=== PATIENT | female | born 1980 | race Caucasian/White ===

== ENCOUNTER 2020-03-20 10:41 | Inpatient (IN) ==
[2020-03-20] MEDS ORDERED: ONDANSETRON INJ 2 MG/ML 2 ML VIAL IV STA (10:54)
[2020-03-20] MEDS ORDERED: SODIUM CHLORIDE 0.9% 1000ML 1,000 ML IV ONE (10:57)
--- NOTE | 2020-03-20 10:57 | Emergency Department Note ---
Impression & Plan Nausea & vomiting, Acute pelvic inflammatory disease (PID), Urinary tract infection ED Provider Note NAME: CHANNING LICONA AGE: 40 SEX: F : 1980 ARRIVES VIA: Walk-In INFORMANT: Patient, ED PROVIDER(S): Sven Grewal DO CHIEF COMPLAINT: Vaginal discharge HPI: The patient is a 40-year-old female who presented to the emergency department for an evaluation of nausea vomiting. The patient is currently at [facility] for inpatient rehab for detoxification from alcohol. She also has a history of drug abuse. She abuses MDMA. Her last alcoholic beverage was 3 days ago. She was cleared medically in [place] where she lives and then presented to the emergency department today because of nausea vomiting symptoms. She also is concerned she may have been exposed to an STD. She is noticed a foul-smelling discharge. She also notices lower abdominal crampiness. She denies having any fever. The patient states that her last menstrual period was normal timing. The patient denies having any headache or chest pain. She denies having any difficulty breathing. She is been taking Phenergan and Zofran at [facility] with only minimal relief in her symptoms. The patient still has her gallbladder. The patient states that she thinks her significant other may have been cheating on her. ROS: See above HPI for pertinent positives & negatives. A total of 10 systems reviewed and were otherwise negative. PAST MEDICAL HISTORY: See Below PAST SURGICAL HISTORY: See Below FAMILY HISTORY: See Below SOCIAL HISTORY: See Below HOME MEDICATIONS: See Below ALLERGIES: See Below VITALS: See Below PHYSICAL EXAMINATION: GENERAL: Patient is awake alert in no acute distress patient is resting c omfortably and showing no signs of anxiety EYES: The conjunctivae are clear. The pupils are round and reactive. EARS, NOSE, MOUTH AND THROAT: The nose is without any evidence of any deformity. Mucous membranes are moist. Tongue is midline. NECK: The neck is nontender and supple. RESPIRATORY: Normal respiratory effort is noted there is no evidence of wheezing rhonchi or rales CARDIOVASCULAR: Regular rate and rhythm noted there no murmurs rubs or gallops normal S1 normal S2. GASTROINTESTINAL: The abdomen is soft and nondistended. There is lower abdominal tenderness to palpation but no guarding rigidity. PELVIC: External genitalia are normal in appearance. There was no rashes or lesions. Speculum exam revealed significant discharge with injection of the cervix. There was also mild cervical motion tenderness and left adnexal tenderness. MUSCULOSKELETAL/EXTREMITIES: There is no evidence of gross deformity full range of motion is noted in the hips and shoulders. SKIN: There is no obvious evidence of any rash. There are no petechiae, pallor or cyanosis noted. NEUROLOGIC: Patient is awake alert and oriented x3 strength is symmetric patellar reflexes are 2+ bilaterally MEDICAL DECISION MAKING: The patient is a 40-year-old female who presented to the emergency department from [facility] for an evaluation of nausea and vomiting. The patient describes lower abdominal tenderness and vaginal discharge. Her history and physical exam do appear to be consistent with PID. I discussed the patient's laboratory and radiographic studies with her. She was treated with IV fluids and multiple doses of IV antiemetics. She was also given IV and p.o. antibiotics to cover for pelvic inflammatory disease as well as urinary tract infection. I discussed her case with the nursing staff at [facility]. At this time they would prefer the patient be observed in our facility to ensure she was improving as they were not comfortable managing her symptoms back at their facility. For this reason I discussed her case with Dr. Proctor who is on-call for the [facility]. They will evaluate the patient in the emergency department for further management and disposition. Triage Nursing notes reviewed. Prior medical records reviewed Vital Signs: reviewed and remarkable for initial hypotension. Differential diagnosis: Etiologies such as appendicitis, diverticulitis, obstruction, inflammatory bowel disease, renal colic, PUD, biliary pathology, pancreatitis, mesenteric ischemia, aortic pathology, infections, genitourinary, UTI, perforated viscus, as well as others were entertained. ER treatment provided: See below Diagnostics interpreted by me: ECG: EKG was obtained in the emergency department. My interpretation is sinus rhythm at 71 bpm. Frequent PVCs were noted. Ectopic atrial beats were also noted. No previous tracing was available for comparison. Cardiac Monitoring: An order was placed for continuous cardiac monitoring. The monitor shows a rate of 85 bpm with sinus rhythm. Laboratory studies: As stated above and show below. Imaging studies: See below Consultation(s): 1410: I discussed this case with Dr. Proctor who is on-call for the [facility]. Past Med/Surg History Medical History Alcohol abuse Asthma Social History Smoking Status: Current every day smoker Hx Alcohol Use: Yes Alcohol type: beer Alcohol Intake Frequency: 2-3 x/Week Hx Substance Use: Yes (MDMA) Feels Safe at Home: Yes Allergies Allergies Allergy/AdvReac Type Severity Reaction Status Date / Time No Known Allergies Allergy Unverified 03/20/20 11:57 Home Meds Home Medications Medication Instructions Recorded Confirmed acetaminophen [Tylenol 8 Hour] 650 mg PO QID PRN 03/20/20 03/20/20 aluminum-magnesium hydroxide 20 ml PO BID PRN 03/20/20 03/20/20 [Maalox] aripiprazole [Abilify] 10 mg PO QAM 03/20/20 03/20/20 aripiprazole [Abilify] 20 mg PO QAM 03/20/20 03/20/20 buspirone [BuSpar] 5 mg PO BID 03/20/20 03/20/20 cyanocobalamin (vitamin B-12) 1,000 mcg PO QAM 03/20/20 03/20/20 [Vitamin B-12] escitalopram oxalate [Lexapro] 10 mg PO QAM 03/20/20 03/20/20 folic acid 1 mg PO QAM 03/20/20 03/20/20 ibuprofen 600 mg PO QID PRN 03/20/20 03/20/20 multivitamin [M.V.I.] 1 ea IV QAM 03/20/20 03/20/20 ondansetron HCl [Zofran] 8 mg PO TID PRN 03/20/20 03/20/20 promethazine [Phenergan] 25 mg PO ONCE 03/20/20 03/20/20 thiamine HCl (vitamin B1) 100 mg PO QAM 03/20/20 03/20/20 Results & Data (ED) Vital Signs Vital Signs - 24 hr 03/20/20 10:45 03/20/20 11:18 03/20/20 11:24 Temperature 36.8 C Temperature Source Oral Pulse Rate 85 86 71 Pulse Rate from SpO2 Sensor 71 Respiratory Rate 16 21 22 Blood Pressure 85/59 L 122/71 Blood Pressure Mean 67 91 Pulse Oximetry 97 99 Oxygen Delivery Method Room Air Sepsis Recent Fever Within 48 Hours No Sepsis New/Unexplained Change in Mental Status N/A Sepsis Action Taken by Nursing No Action Required 03/20/20 11:30 03/20/20 12:00 03/20/20 12:01 Temperature Temperature Source Pulse Rate 67 73 92 H Pulse Rate from SpO2 Sensor 67 66 74 Respiratory Rate 22 23 16 Blood Pressure 110/73 Blood Pressure Mean 86 Pulse Oximetry 99 91 Oxygen Delivery Method Sepsis Recent Fever Within 48 Hours Sepsis New/Unexplained Change in Mental Status Sepsis Action Taken by Nursing 03/20/20 12:30 03/20/20 12:31 03/20/20 13:00 Temperature Temperature Source Pulse Rate 78 76 84 Pulse Rate from SpO2 Sensor Respiratory Rate 22 29 H 17 Blood Pressure 126/72 Blood Pressure Mean 96 Pulse Oximetry Oxygen Delivery Method Sepsis Recent Fever Within 48 Hours Sepsis New/Unexplained Change in Mental Status Sepsis Action Taken by Nursing 03/20/20 13:30 Temperature Temperature Source Pulse Rate 73 Pulse Rate from SpO2 Sensor Respiratory Rate 20 Blood Pressure Blood Pressure Mean Pulse Oximetry Oxygen Delivery Method Sepsis Recent Fever Within 48 Hours Sepsis New/Unexplained Change in Mental Status Sepsis Action Taken by Usp Medications Current Medication List: was personally reviewed by me Laboratory Data Attestation: I reviewed the patient's lab results. Result diagrams: 03/20/20 11:17 03/20/20 11:17 Lab Results 03/20/20 03/20/20 03/20/20 Range/Units 11:17 11:17 11:17 WBC 18.08 H (4.8-10.8) K/uL RBC 6.08 H (4.2-5.4) M/uL Hgb 17.4 H (12.0-16.0) g/dL Hct 51.7 H (37-47) % MCV 85.0 (80-100) fL MCH 28.6 (25-34) pg MCHC 33.7 (32-36) g/dL RDW Std Deviation 45.0 (36.4-46.3) fL RDW Coeff of Dimitrios 14.6 H (11.5-14.5) % Plt Count 443 H (130-400) K/uL MPV 11.6 H (7.4-10.4) fL Immature Gran % (Auto) 0.3 % Neut % (Auto) 79.0 % Lymph % (Auto) 15.3 % [place] % (Auto) 5.3 % Eos % (Auto) 0.0 % Baso % (Auto) 0.1 % Neut # (Auto) 14.29 H (1.4-6.5) K/uL Lymph # (Auto) 2.76 (1.2-3.4) K/uL [place] # (Auto) 0.96 H (0.11-0.59) K/uL Eos # (Auto) 0.00 (0-0.5) K/uL Baso # (Auto) 0.01 (0-0.2) K/uL Immature Gran # (Auto) 0.06 H (0.00-0.02) K/uL Sodium 135 L (136-145) mmol/L Potassium 3.5 (3.5-5.1) mmol/L Chloride 97 L (98-107) mmol/L Carbon Dioxide 29 (21-32) mmol/L Anion Gap 9.0 (3-11) BUN 13 (7-18) mg/dl Creatinine 0.98 (0.6-1.2) mg/dl Est Cr Clr Drug Dosing 76.2 ml/min Est GFR ( Amer) 83.0 Est GFR (Non-Af Amer) 71.6 BUN/Creatinine Ratio 13.0 (10-20) Glucose 94 (70-99) mg/dl Calcium 10.2 H (8.5-10.1) mg/dl Magnesium (1.8-2.4) mg/dl Total Bilirubin 0.7 (0.2-1) mg/dl AST 14 L (15-37) U/L ALT 21 (12-78) U/L Alkaline Phosphatase 72 (45-117) U/L Troponin I (0-0.045) ng/ml Total Protein 10.1 H (6.4-8.2) gm/dl Albumin 4.8 (3.4-5.0) gm/dl Globulin 5.3 H (2.5-4.0) gm/dl Albumin/Globulin Ratio 0.9 (0.9-2) Lipase 91 (73-393) U/L HCG, Qual Negative (Negative) Urine Color Urine Appearance (Clear) Urine pH (4.5-7.5) Ur Specific [place] (1.000-1.030) Urine Protein (Negative) Urine Glucose (UA) (Negative) Urine Ketones (Negative) Urine Blood (Negative) Urine Nitrite (Negative) Urine Bilirubin (Negative) Urine Urobilinogen (Negative) Ur Leukocyte Esterase (Negative) Urine WBC (Auto) (0-5) /hpf Urine RBC (Auto) (0-4) /hpf U Hyaline Cast (Auto) (0-5) /lpf U Epithel Cells (Auto) (0-5) /lpf Urine Bacteria (Auto) (Negative) Urine Opiates Screen (Neg) Ur Methadone, Qual (Neg) Urine Barbiturates (Neg) Ur Phencyclidine (PCP) (Neg) U Amphetamin/Meth Scrn (Neg) MDMA (Ecstasy) Screen (Neg) U Benzodiazepines Scrn (Neg) Ur Cocaine Metabolite (Neg) U Marijuana (THC) Screen (Neg) 03/20/20 03/20/20 03/20/20 Range/Units 11:17 11:17 11:17 WBC (4.8-10.8) K/uL RBC (4.2-5.4) M/uL Hgb (12.0-16.0) g/dL Hct (37-47) % MCV (80-100) fL MCH (25-34) pg MCHC (32-36) g/dL RDW Std Deviation (36.4-46.3) fL RDW Coeff of Dimitrios (11.5-14.5) % Plt Count (130-400) K/uL MPV (7.4-10.4) fL Immature Gran % (Auto) % Neut % (Auto) % Lymph % (Auto) % [place] % (Auto) % Eos % (Auto) % Baso % (Auto) % Neut # (Auto) (1.4-6.5) K/uL Lymph # (Auto) (1.2-3.4) K/uL [place] # (Auto) (0.11-0.59) K/uL Eos # (Auto) (0-0.5) K/uL Baso # (Auto) (0-0.2) K/uL Immature Gran # (Auto) (0.00-0.02) K/uL Sodium (136-145) mmol/L Potassium (3.5-5.1) mmol/L Chloride (98-107) mmol/L Carbon Dioxide (21-32) mmol/L Anion Gap (3-11) BUN (7-18) mg/dl Creatinine (0.6-1.2) mg/dl Est Cr Clr Drug Dosing ml/min Est GFR ( Amer) Est GFR (Non-Af Amer) BUN/Creatinine Ratio (10-20) Glucose (70-99) mg/dl Calcium (8.5-10.1) mg/dl Magnesium 2.2 (1.8-2.4) mg/dl Total Bilirubin (0.2-1) mg/dl AST (15-37) U/L ALT (12-78) U/L Alkaline Phosphatase (45-117) U/L Troponin I < 0.015 (0-0.045) ng/ml Total Protein (6.4-8.2) gm/dl Albumin (3.4-5.0) gm/dl Globulin (2.5-4.0) gm/dl Albumin/Globulin Ratio (0.9-2) Lipase (73-393) U/L HCG, Qual (Negative) Urine Color Dark Yellow Urine Appearance Turbid A (Clear) Urine pH 5.5 (4.5-7.5) Ur Specific [place] 1.026 (1.000-1.030) Urine Protein 2+ H (Negative) Urine Glucose (UA) Negative (Negative) Urine Ketones 3+ H (Negative) Urine Blood Trace H (Negative) Urine Nitrite Negative (Negative) Urine Bilirubin 2+ H (Negative) Urine Urobilinogen Negative (Negative) Ur Leukocyte Esterase 2+ H (Negative) Urine WBC (Auto) >30 H (0-5) /hpf Urine RBC (Auto) 0-4 (0-4) /hpf U Hyaline Cast (Auto) 10-30 H (0-5) /lpf U Epithel Cells (Auto) >30 H (0-5) /lpf Urine Bacteria (Auto) 2+ H (Negative) Urine Opiates Screen Neg (Neg) Ur Methadone, Qual Neg (Neg) Urine Barbiturates Neg (Neg) Ur Phencyclidine (PCP) Neg (Neg) U Amphetamin/Meth Scrn Neg (Neg) MDMA (Ecstasy) Screen Neg (Neg) U Benzodiazepines Scrn Neg (Neg) Ur Cocaine Metabolite Neg (Neg) U Marijuana (THC) Screen Neg (Neg) Administered Medications Discontinued Medications Azithromycin (Azithromycin 250 Mg Tab) 1,000 mg PO NOW ONE Stop: 03/20/20 12:14 Last Admin: 03/20/20 13:44 Dose: 1,000 mg Documented by: [id number] Sodium Chloride (Nss 1000ml) 1,000 mls @ 999 mls/hr IV .Q1H1M RITA Stop: 03/20/20 12:00 Last Infusion: 03/20/20 12:32 Dose: 0 mls/hr Documented by: [id number] Admin: 03/20/20 11:29 Dose: 999 mls/hr Documented by: [id number] Sodium Chloride (Nss 1000ml) 1,000 mls @ 999 mls/hr IV .Q1H1M ONE Stop: 03/20/20 11:57 Last Infusion: 03/20/20 12:32 Dose: 0 mls/hr Documented by: [id number] Admin: 03/20/20 11:29 Dose: 999 mls/hr Documented by: [id number] Thiamine HCl 200 mg/ Sodium (Chloride) 52 mls @ 208 mls/hr IV NOW STA Stop: 03/20/20 12:04 Last Infusion: 03/20/20 13:45 Dose: 0 mls/hr Documented by: [id number] Admin: 03/20/20 12:56 Dose: 208 mls/hr Documented by: [id number] Ceftriaxone Sodium (Rocephin) 1,000 mg in 50 mls @ 100 mls/hr IV NOW STA Stop: 03/20/20 12:42 Last Infusion: 03/20/20 13:45 Dose: 0 mls/hr Documented by: [id number] Admin: 03/20/20 12:39 Dose: 100 mls/hr Documented by: [id number] Promethazine HCl (Phenergan) 12.5 mg in 50.5 mls @ 202 mls/hr IV NOW STA Stop: 03/20/20 13:07 Last Infusion: 03/20/20 13:45 Dose: 0 mls/hr Documented by: [id number] Admin: 03/20/20 13:03 Dose: 202 mls/hr Documented by: [id number] Ioversol (Ioversol 100ml) 94 ml IV ONCE ONE Stop: 03/20/20 13:19 Last Admin: 03/20/20 13:19 Dose: 94 ml Documented by: [id number] Ondansetron HCl (Ondansetron Inj 2 Mg/Ml 2 Ml Vial) 4 mg IV NOW STA Stop: 03/20/20 10:55 Last Admin: 03/20/20 11:29 Dose: 4 mg Documented by: [id number] Imaging Data Radiologist's Impression: Patient: CHANNING LICONA Admit Date: 03/20/20 MR#: [id number] Address1: [address] [place] [address] Acct ID:[id number] Address2: Date: 1980 [facility] Zip: [place] [address] Age: 40 Location: ED Sex: F Room/Bed: Att Phy: Diagnosis: VOMITING, CAN'D HOLD ANYTHING DOWN,CRAMPING Jailene Phy: PCP,NO Service Date: 03/20/20 [facility] Phy: Interpreting Phy: Parveen Manning MD Admit Phy: Ordering Phy: Sven Grewal DO cc: ~ ABDOMEN AND PELVIS CT WITH IV CONTRAST CT DOSE: 447.35 mGycm HISTORY: Abdominal cramping and vomiting TECHNIQUE: Multiaxial CT images of the abdomen and pelvis were performed following the use of intravenous contrast. A dose lowering technique was utilized adhering to the principles of ALARA. COMPARISON STUDY: None. FINDINGS: The lung bases are clear. No pneumoperitoneum. No pneumatosis. There is a 5 mm hypodense lesion within the left hepatic lobe. This is technically too small to characterize but likely represents a cyst. The liver, spleen, adrenal glands, pancreas, and kidneys are unremarkable. No hydronephrosis. No retroperitoneal lymphadenopathy. The main portal vein is patent. Normal caliber abdominal aorta. The bladder, uterus, and ovaries are within normal limits. There is a 1.8 cm dominant right ovarian cyst. This is likely physiologic. Trace pelvic free fluid is also likely physiologic. No bowel wall thickening or obstruction. Normal appendix. IMPRESSION: 1. No bowel wall thickening or obstruction. 2. Normal appendix. 3. Trace pelvic free fluid. This is likely physiologic. ACT 112: Negative or not required by law. Electronically signed by: Parveen Manning M.D. 03/20/2020 1:35 PM Dictated: 03/20/201326 Transcribed: 03/20/20 1327 Patient: CHANNING LICONA Admit Date: 03/20/20 MR#: [id number] Address1: [address] [place] [address] Acct ID:[id number] Address2: Date: 1980 [facility] Zip: [place] [address] Age: 40 Location: ED Sex: F Room/Bed: Att Phy: Diagnosis: VOMITING, CAN'D HOLD ANYTHING DOWN,CRAMPING Jailene Phy: PCP,NO Service Date: 03/20/20 Fam Phy: Interpreting Phy: Keith Valera Admit Phy: Ordering Phy: Sven Grewal DO cc: ~ XR chest 1V portable, XR KUB/Abdomen 1 view HISTORY: 40 years-old Female vomiting acute vomiting COMPARISON: None TECHNIQUE: Chest radiograph with KUB radiograph FINDINGS: CHEST: Cardiomediastinal and hilar silhouettes are within normal limits. There is no pneumothorax, pleural effusion, airspace consolidation or overt pulmonary edema. Bones of the chest appear grossly intact. Nipple shadows project over the lung bases. KUB: Bowel gas pattern is nonobstructive. No urolith. No pneumatosis or pneumoperitoneum. No acute fracture or opaque foreign body. IMPRESSION: 1. No acute processes of the chest. 2. Nonobstructive bowel gas pattern. ACT 112: Negative or not required by law. The above report was generated using voice recognition software. It may contain grammatical, syntax or spelling errors. Electronically signed by: Paulino Valera M.D. 03/20/2020 12:21 PM Dictated: 03/20/20 121 Transcribed: 03/20/20 1219 Patient: CHANNING LICONA Admit Date: 03/20/20 MR#: [id number] Address1: [address] Acct ID:[id number] Address2: Date: 1980 [facility] Zip: [place] [address] Age: 40 Location: ED Sex: F Room/Bed: Att Phy: Diagnosis: VOMITING, CAN'D HOLD ANYTHING DOWN,CRAMPING Jailene Phy: PCP,NO Service Date: 03/20/20 Fam Phy: Interpreting Phy: Keith Valera Admit Phy: Ordering Phy: Sven Grewal DO cc: ~ XR chest 1V portable, XR KUB/Abdomen 1 view HISTORY: 40 years-old Female vomiting acute vomiting COMPARISON: None TECHNIQUE: Chest radiograph with KUB radiograph FINDINGS: CHEST: Cardiomediastinal and hilar silhouettes are within normal limits. There is no pneumothorax, pleural effusion, airspace consolidation or overt pulmonary edema. Bones of the chest appear grossly intact. Nipple shadows project over the lung bases. KUB: Bowel gas pattern is nonobstructive. No urolith. No pneumatosis or pn eumoperitoneum. No acute fracture or opaque foreign body. IMPRESSION: 1. No acute processes of the chest. 2. Nonobstructive bowel gas pattern. ACT 112: Negative or not required by law. The above report was generated using voice recognition software. It may contain grammatical, syntax or spelling errors. Electronically signed by: Paulino Valera M.D. 03/20/2020 12:21 PM Dictated: 03/20/20 1219 Transcribed: 03/20/20 121 Blood Pressure Blood Pressure Findings: Normal blood pressure Discharge Plan Visit Data Chief Complaint: Vomiting Stated Complaint: VOMITING, CAN'D HOLD ANYTHING DOWN,CRAMPING ED Provider: Sevn Grewal Discharge Problem: Nausea & vomiting, Acute pelvic inflammatory disease (PID), Urinary tract infection Patient Disposition: Being Evaluated by Hospitalist Condition: Good Forms Stand Alone Forms: [facility] Prescriptions Prescriptions: No Action buspirone [BuSpar] 5 mg Tablet 5 mg PO BID RF: 0 ondansetron HCl [Zofran] 8 mg Tablet 8 mg PO TID PRN (Reason: Nausea) RF: 0 cyanocobalamin (vitamin B-12) [Vitamin B-12] 1,000 mcg Tablet 1,000 mcg PO QAM RF: 0 thiamine HCl (vitamin B1) 100 mg Tablet 100 mg PO QAM RF: 0 acetaminophen [Tylenol 8 Hour] 650 mg Tablet Extended Release 650 mg PO QID PRN (Reason: Pain) RF: 0 Maalox 225-200 mg/5 mL Suspension 20 ml PO BID PRN (Reason: gastric upset) RF: 0 promethazine [Phenergan] 25 mg Tablet 25 mg PO ONCE RF: 0 folic acid 1 mg Tablet 1 mg PO QAM RF: 0 ibuprofen 600 mg Tablet 600 mg PO QID PRN (Reason: Pain) RF: 0 M.V.I. Injectable 1 ea IV QAM RF: 0 escitalopram oxalate [Lexapro] 10 mg Tablet 10 mg PO QAM RF: 0 aripiprazole [Abilify] 10 mg Tablet 10 mg PO QAM RF: 0 aripiprazole [Abilify] 20 mg Tablet 20 mg PO QAM RF: 0 Referrals Referrals: PCP,NO [Primary Care Provider] -
[2020-03-20] MEDS ORDERED: SODIUM CHLORIDE 0.9% 1000ML 1,000 ML IV SCH (11:00)
[2020-03-20 11:37] LABS: Basophils # (auto) 0.01 K/uL (0-0.2); Basophils % (auto) 0.1 %; Hematocrit (blood only) 51.7 % (37-47); Hemoglobin 17.4 g/dL (12.0-16.0); Immature Granulocytes # (auto) 0.06 K/uL (0.00-0.02); Immature Granulocytes % (auto) 0.3 %; Lymphocytes # (auto) 2.76 K/uL (1.2-3.4); Lymphocytes % (auto) 15.3 %; Mean Corpuscular Hemoglobin 28.6 pg (25-34); Mean Corpuscular Hgb Conc 33.7 g/dL (32-36); Mean Platelet Volume 11.6 fL (7.4-10.4); Monocytes # (auto) 0.96 K/uL (0.11-0.59); Monocytes % (auto) 5.3 %; Neutrophils # (auto) 14.29 K/uL (1.4-6.5); Platelet Count 443 K/uL (130-400); RDW Coefficient of Variation 14.6 % (11.5-14.5); Red Blood Count 6.08 M/uL (4.2-5.4); White Blood Count 18.08 K/uL (4.8-10.8)
[2020-03-20 11:40] LABS: Appearance Urine Turbid (Clear); Bacteria Urine Automated 2+ (Negative); Blood Urine Trace (Negative); Color Urine Dark Yellow; Epithelial Cell Urine Auto >30 /lpf (0-5); Glucose Urine UA Negative (Negative); Ketones Urine 3+ (Negative); Leukocyte Esterase Urine 2+ (Negative); Nitrite Urine Negative (Negative); Protein Urine 2+ (Negative); RBC Urine Automated 0-4 /hpf (0-4); Specific Gravity Urine 1.026 (1.000-1.030); Urobilinogen Urine Negative (Negative); WBC Urine Automated >30 /hpf (0-5); pH Urine 5.5 (4.5-7.5)
[2020-03-20 11:41] LABS: Bilirubin Urine 2+ (Negative)
[2020-03-20 11:43] LABS: Ictotest Urine Positive (Negative)
[2020-03-20] MEDS ORDERED: THIAMINE HCL 200 MG in SODIUM CHLORIDE 0.9% 50 ML IV STA (11:50)
[2020-03-20 11:55] LABS: Albumin Level 4.8 gm/dl (3.4-5.0); Calcium 10.2 mg/dl (8.5-10.1); Creatinine Clr Calc Pharmacy 76.2 ml/min; Est GFR (Non-African American) 71.6; Potassium 3.5 mmol/L (3.5-5.1)
[2020-03-20 11:58] LABS: Albumin Globulin Ratio 0.9 (0.9-2); Bilirubin,Total 0.7 mg/dl (0.2-1); Globulin 5.3 gm/dl (2.5-4.0); Total Protein 10.1 gm/dl (6.4-8.2)
[2020-03-20 12:00] LABS: Pregnancy Test, Serum Negative (Negative)
[2020-03-20] MEDS ORDERED: cefTRIAXone SODIUM 1,000 MG/50 ML BAG IV STA (12:13)
[2020-03-20 12:16] LABS: Amphetamines+Metham, Urine Neg (Neg); Barbiturates, Urine Neg (Neg); Benzodiazepine, Urine Neg (Neg); Cocaine, Urine Neg (Neg); MDMA (Ecstacy), Urine Neg (Neg); Methadone, Urine Neg (Neg); Opiate, Urine Neg (Neg); Phencyclidine, Urine Neg (Neg)
[2020-03-20 12:22] LABS: Magnesium 2.2 mg/dl (1.8-2.4); Troponin I < 0.015 ng/ml (0-0.045)
--- NOTE | 2020-03-20 12:23 | XRay Report ---
XR chest 1V portable, XR KUB/Abdomen 1 view HISTORY: 40 years-old Female vomiting acute vomiting COMPARISON: None TECHNIQUE: Chest radiograph with KUB radiograph FINDINGS: CHEST: Cardiomediastinal and hilar silhouettes are within normal limits. There is no pneumothorax, pleural e ffusion, airspace consolidation or overt pulmonary edema. Bones of the chest appear grossly intact. N ipple shadows project over the lung bases. KUB: Bowel gas pattern is nonobstructive. No urolith. No pneumatosis or pneumoperitoneum. No acute fractur e or opaque foreign body. IMPRESSION: 1. No acute processes of the chest. 2. Nonobstructive bowel gas pattern. ACT 112: Negative or not required by law. The above report was generated using voice recognition software. It may contain grammatical, syntax o r spelling errors. Electronically signed by: Paulino Valera M.D. 03/20/2020 12:21 PM
[2020-03-20] MEDS: AZITHROMYCIN 250 MG TAB PO ONE ×2 (12:39→13:44)
[2020-03-20] MEDS ORDERED: PROMETHAZINE 12.5 MG/50.5 ML BAG IV STA (12:53)
[2020-03-20] MEDS ORDERED: IOVERSOL 100ml IV ONE (13:18)
--- NOTE | 2020-03-20 13:36 | CT Scan Report ---
ABDOMEN AND PELVIS CT WITH IV CONTRAST CT DOSE: 447.35 mGycm HISTORY: Abdominal cramping and vomiting TECHNIQUE: Multiaxial CT images of the abdomen and pelvis were performed following the use of intrave nous contrast. A dose lowering technique was utilized adhering to the principles of ALARA. COMPARISON STUDY: None. FINDINGS: The lung bases are clear. No pneumoperitoneum. No pneumatosis. There is a 5 mm hypodense le james within the left hepatic lobe. This is technically too small to characterize but likely represent s a cyst. The liver, spleen, adrenal glands, pancreas, and kidneys are unremarkable. No hydronephrosi s. No retroperitoneal lymphadenopathy. The main portal vein is patent. Normal caliber abdominal aorta . The bladder, uterus, and ovaries are within normal limits. There is a 1.8 cm dominant right ovarian cyst. This is likely physiologic. Trace pelvic free fluid is also likely physiologic. No bowel wall thickening or obstruction. Normal appendix. IMPRESSION: 1. No bowel wall thickening or obstruction. 2. Normal appendix. 3. Trace pelvic free fluid. This is likely physiologic. ACT 112: Negative or not required by law. Electronically signed by: Parveen Manning M.D. 03/20/2020 1:35 PM
--- NOTE | 2020-03-20 14:24 | Electrocardiogram Report ---
Test Reason : Blood Pressure : / mmHG Vent. Rate : 071 BPM Atrial Rate : 071 BPM P-R Int : 120 ms QRS Dur : 084 ms QT Int : 416 ms P-R-T Axes : 065 061 064 degrees QTc Int : 452 ms Sinus rhythm with sinus arrhythmia with occasional Premature ventricular complexes Otherwise normal ECG No previous ECGs available Confirmed by Leobardo Lucas ([id number] on 03/20/2020 2:23:56 PM Referred By: REFERRED SELF Confirmed By:Gordo Lucas
--- NOTE | 2020-03-20 14:40 | History & Physical Report ---
Date of Service March 20, 2020 Assessment & Plan (1) Acute pelvic inflammatory disease (PID): Per ED provider, she had cervical discharge and cervical motion tenderness on exam. - Continue ceftriaxone / doxycycline - Follow cultures (2) Depression: Patient unwilling to go into any detail with me regarding mental health issues. - Continue home aripiprazole & escitalopram (3) Alcohol abuse: No signs/symptoms of withdrawal at present. Patient reports last drink was last Wednesday, so already at 5 days. Significant withdrawal symptoms appear unlikely. - Monitor - Continue vitamin supplements (4) DVT prophylaxis: SCDs - Low DVT risk per admission calculator History of Present Illness Primary Care Provider: NO PCP 40yo F w/ hx of alcohol abuse who presents with likely PID. Patient is a reluctant historian and after partial interview reports she "just wants warm blankets and to go to sleep" then turns over and ignores my other questions. In terms of interview, she says she had her last drink on Wednesday. She is from [place] and was at [facility] for inpatient rehab. She does not/cannot give me a history of how she got to [facility], only saying she was NOT visiting family or friends in the area. She reports some abdominal cramping and nausea over the last few days. She reports it is waxing and waning and has no associated alleviating or exacerbating factors. She also notes some chills during this time. She declined further ROS. Allergies Allergy/AdvReac Type Severity Reaction Status Date / Time No Known Allergies Allergy Unverified 03/20/20 11:57 Home Medications Home Medications Medication Instructions Recorded Confirmed Type acetaminophen [Tylenol 8 Hour] 650 mg PO QID PRN 03/20/20 03/20/20 History aluminum-magnesium hydroxide 20 ml PO BID PRN 03/20/20 03/20/20 History [Maalox] aripiprazole [Abilify] 10 mg PO QAM 03/20/20 03/20/20 History aripiprazole [Abilify] 20 mg PO QAM 03/20/20 03/20/20 History buspirone [BuSpar] 5 mg PO BID 03/20/20 03/20/20 History cyanocobalamin (vitamin B-12) 1,000 mcg PO QAM 03/20/20 03/20/20 History [Vitamin B-12] escitalopram oxalate [Lexapro] 10 mg PO QAM 03/20/20 03/20/20 History folic acid 1 mg PO QAM 03/20/20 03/20/20 History ibuprofen 600 mg PO QID PRN 03/20/20 03/20/20 History multivitamin [M.V.I.] 1 ea IV QAM 03/20/20 03/20/20 History ondansetron HCl [Zofran] 8 mg PO TID PRN 03/20/20 03/20/20 History promethazine [Phenergan] 25 mg PO ONCE 03/20/20 03/20/20 History thiamine HCl (vitamin B1) 100 mg PO QAM 03/20/20 03/20/20 History Past Med/Surg History Medical History (Updated 03/20/20 @ 14:39 by Roosevelt Proctor MD) Alcohol abuse Asthma Family History Other Family history non-contributory Social History Smoking Status: Current every day smoker Hx Alcohol Use: Yes Alcohol type: beer Alcohol Intake Frequency: 2-3 x/Week Hx Substance Use: Yes (MDMA) Feels Safe at Home: Yes Review of Systems Review of Systems: Other (Unobtainable due to patient refusal) Physical Exam Constitutional: WD/WN, vitals as above Eyes: EOM intact bilaterally; no conjunctival abnormality ENMT: external ear and nose normal, oropharynx normal Neck: trachea midline, no thyromegaly normal visual inspection Respiratory: normal respiratory effort, lungs clear to auscultation no respiratory distress Cardiovascular: RRR, no murmur, no edema Gastrointestinal (Abdomen): Inspection/Auscultation: abdomen normal to inspection; abdomen not distended Musculoskeletal: no cyanosis or clubbing, extremities motor strength 5/5 Skin: no rashes, warm and dry Neurologic: moves all extremities and awake Psychiatric: Orientation: alert, oriented to person and cooperative Results & Data Results & Data ([facility]) Vital Signs (Past 12 Hours) Vital Signs Temp Pulse Resp BP Pulse Ox 03/20/20 13:30 73 20 03/20/20 13:00 84 17 03/20/20 12:31 76 29 H 126/72 03/20/20 12:30 78 22 03/20/20 12:01 92 H 16 91 03/20/20 12:00 73 23 03/20/20 11:30 67 22 110/73 99 03/20/20 11:24 71 22 99 03/20/20 11:18 86 21 122/71 03/20/20 10:45 36.8 C 85 16 85/59 L 97 Code Status & VTE Plan VTE Prophylaxis Plan VTE Prophylaxis will be ordered: Yes PG Care Time/CCT Total # of Minutes Spent Total Time Spent with Patient: Total time spent is greater than 50% in coordination of care (as documented) at patient's floor/unit and/or counseling patient: Coding Level of Care Code 38466 OBS Care - Level 3 Diagnoses Acute pelvic inflammatory disease (PID) N73.0 Depression F32.9 Alcohol abuse F10.10 DVT prophylaxis Z29.9
[2020-03-20] MEDS ORDERED: ALUMINUM/MAGNESIUM SUSP 30 ML UDC PO PRN (16:39)
[2020-03-20] MEDS ORDERED: ONDANSETRON INJ 2 MG/ML 2 ML VIAL IV PRN (16:39)
[2020-03-20] MEDS ORDERED: ONDANSETRON INJ 2 MG/ML 2 ML VIAL ONE (16:41)
[2020-03-20] MEDS ORDERED: ACETAMINOPHEN 325 MG TAB PO PRN (16:46)
[2020-03-20] MEDS: NORMOSOL-R 1,000 ML IV SCH (16:55)
[2020-03-20] MEDS: PROMETHAZINE HCL 12.5 MG in SODIUM CHLORIDE 0.9% 50 ML IV PRN (18:54)
[2020-03-20] MEDS: busPIRone 5 MG TAB PO SCH (21:10)
[2020-03-20] MEDS: DOXYCYCLINE HYCLATE 100 MG CAP PO SCH (21:10)
[2020-03-21] MEDS: NORMOSOL-R 1,000 ML IV SCH ×2 (05:44→20:40)
[2020-03-21 05:55] LABS: Hematocrit (blood only) 41.8 % (37-47); Hemoglobin 14.1 g/dL (12.0-16.0); Mean Corpuscular Hemoglobin 28.5 pg (25-34); Mean Corpuscular Hgb Conc 33.7 g/dL (32-36); Mean Corpuscular Volume 84.6 fL (80-100); Mean Platelet Volume 10.8 fL (7.4-10.4); Platelet Count 313 K/uL (130-400); RDW Coefficient of Variation 14.5 % (11.5-14.5); RDW Standard Deviation 44.7 fL (36.4-46.3); Red Blood Count 4.94 M/uL (4.2-5.4); White Blood Count 9.65 K/uL (4.8-10.8)
[2020-03-21 06:25] LABS: BUN Creatinine Ratio 12.3 (10-20); Calcium 8.4 mg/dl (8.5-10.1); Creatinine Clr Calc Pharmacy 124.5 ml/min; Est GFR (African American) 131.2; Est GFR (Non-African American) 113.2; Magnesium 2.1 mg/dl (1.8-2.4); Potassium 3.4 mmol/L (3.5-5.1)
--- NOTE | 2020-03-21 07:56 | Hospitalist Progress Note ---
Date of Service March 21, 2020 Assessment & Plan (1) Acute pelvic inflammatory disease (PID): (2) Nausea & vomiting: (3) Alcohol abuse: (4) Depression: Admission and Anticipated Discharge Date Admission Date: March 20, 2020 Subjective 40 yo F PMH depression, alcohol abuse, recently discharged? from rehab at [facility] Results & Data Results & Data ([facility]) Vital Signs (Past 12 Hours) Vital Signs Temp Pulse Resp BP Pulse Ox 03/21/20 03:00 59 L 18 145/95 H 98 03/21/20 00:05 36.8 C 62 18 127/78 96 03/20/20 20:30 36.8 C 62 18 127/83 96 Laboratory Results WBC 9.65 K/uL (4.8-10.8) 03/21/20 05:25 RBC 4.94 M/uL (4.2-5.4) 03/21/20 05:25 Hgb 14.1 g/dL (12.0-16.0) D 03/21/20 05:25 Hct 41.8 % (37-47) 03/21/20 05:25 MCV 84.6 fL (80-100) 03/21/20 05:25 MCH 28.5 pg (25-34) 03/21/20 05:25 MCHC 33.7 g/dL (32-36) 03/21/20 05:25 RDW Std Deviation 44.7 fL (36.4-46.3) 03/21/20 05:25 RDW Coeff of Dimitrios 14.5 % (11.5-14.5) 03/21/20 05:25 Plt Count 313 K/uL (130-400) 03/21/20 05:25 MPV 10.8 fL (7.4-10.4) H 03/21/20 05:25 Immature Gran % (Auto) 0.3 % 03/20/20 11:17 Neut % (Auto) 79.0 % 03/20/20 11:17 Lymph % (Auto) 15.3 % 03/20/20 11:17 [place] % (Auto) 5.3 % 03/20/20 11:17 Eos % (Auto) 0.0 % 03/20/20 11:17 Baso % (Auto) 0.1 % 03/20/20 11:17 Neut # (Auto) 14.29 K/uL (1.4-6.5) H 03/20/20 11:17 Lymph # (Auto) 2.76 K/uL (1.2-3.4) 03/20/20 11:17 [place] # (Auto) 0.96 K/uL (0.11-0.59) H 03/20/20 11:17 Eos # (Auto) 0.00 K/uL (0-0.5) 03/20/20 11:17 Baso # (Auto) 0.01 K/uL (0-0.2) 03/20/20 11:17 Immature Gran # (Auto) 0.06 K/uL (0.00-0.02) H 03/20/20 11:17 Sodium 137 mmol/L (136-145) 03/21/20 05:25 Potassium 3.4 mmol/L (3.5-5.1) L 03/21/20 05:25 Chloride 103 mmol/L (98-107) 03/21/20 05:25 Carbon Dioxide 28 mmol/L (21-32) 03/21/20 05:25 Anion Gap 6.0 (3-11) 03/21/20 05:25 BUN 7 mg/dl (7-18) D 03/21/20 05:25 Creatinine 0.60 mg/dl (0.6-1.2) D 03/21/20 05:25 Est Cr Clr Drug Dosing 124.5 ml/min 03/21/20 05:25 Est GFR ( Amer) 131.2 03/21/20 05:25 Est GFR (Non-Af Amer) 113.2 03/21/20 05:25 BUN/Creatinine Ratio 12.3 (10-20) 03/21/20 05:25 Glucose 88 mg/dl (70-99) 03/21/20 05:25 Calcium 8.4 mg/dl (8.5-10.1) L D 03/21/20 05:25 Magnesium 2.1 mg/dl (1.8-2.4) 03/21/20 05:25 Total Bilirubin 0.7 mg/dl (0.2-1) 03/20/20 11:17 AST 14 U/L (15-37) L 03/20/20 11:17 ALT 21 U/L (12-78) 03/20/20 11:17 Alkaline Phosphatase 72 U/L (45-117) 03/20/20 11:17 Troponin I < 0.015 ng/ml (0-0.045) 03/20/20 11:17 Total Protein 10.1 gm/dl (6.4-8.2) H 03/20/20 11:17 Albumin 4.8 gm/dl (3.4-5.0) 03/20/20 11:17 Globulin 5.3 gm/dl (2.5-4.0) H 03/20/20 11:17 Albumin/Globulin Ratio 0.9 (0.9-2) 03/20/20 11:17 Lipase 91 U/L (73-393) 03/20/20 11:17 HCG, Qual Negative (Negative) 03/20/20 11:17 Urine Color Dark Yellow 03/20/20 11:17 Urine Appearance Turbid (Clear) A 03/20/20 11:17 Urine pH 5.5 (4.5-7.5) 03/20/20 11:17 Ur Specific [place] 1.026 (1.000-1.030) 03/20/20 11:17 Urine Protein 2+ (Negative) H 03/20/20 11:17 Urine Glucose (UA) Negative (Negative) 03/20/20 11:17 Urine Ketones 3+ (Negative) H 03/20/20 11:17 Urine Blood Trace (Negative) H 03/20/20 11:17 Urine Nitrite Negative (Negative) 03/20/20 11:17 Urine Bilirubin 2+ (Negative) H 03/20/20 11:17 Urine Urobilinogen Negative (Negative) 03/20/20 11:17 Ur Leukocyte Esterase 2+ (Negative) H 03/20/20 11:17 Urine WBC (Auto) >30 /hpf (0-5) H 03/20/20 11:17 Urine RBC (Auto) 0-4 /hpf (0-4) 03/20/20 11:17 U Hyaline Cast (Auto) 10-30 /lpf (0-5) H 03/20/20 11:17 U Epithel Cells (Auto) >30 /lpf (0-5) H 03/20/20 11:17 Urine Bacteria (Auto) 2+ (Negative) H 03/20/20 11:17 Urine Opiates Screen Neg (Neg) 03/20/20 11:17 Ur Methadone, Qual Neg (Neg) 03/20/20 11:17 Urine Barbiturates Neg (Neg) 03/20/20 11:17 Ur Phencyclidine (PCP) Neg (Neg) 03/20/20 11:17 U Amphetamin/Meth Scrn Neg (Neg) 03/20/20 11:17 MDMA (Ecstasy) Screen Neg (Neg) 03/20/20 11:17 U Benzodiazepines Scrn Neg (Neg) 03/20/20 11:17 Ur Cocaine Metabolite Neg (Neg) 03/20/20 11:17 U Marijuana (THC) Screen Neg (Neg) 03/20/20 11:17 (1) Nausea & vomiting Vomiting Intractability: non-intractable Vomiting type: unspecified Qualified Code(s): R11.2 - Nausea with vomiting, unspecified
[2020-03-21] MEDS: DOXYCYCLINE HYCLATE 100 MG CAP PO SCH ×2 (08:16→20:38)
[2020-03-21] MEDS: PROMETHAZINE HCL 12.5 MG in SODIUM CHLORIDE 0.9% 50 ML IV PRN (08:55)
[2020-03-21] MEDS: busPIRone 5 MG TAB PO SCH ×2 (09:03→20:39)
[2020-03-21] MEDS: FOLIC ACID 1 MG TAB PO SCH (09:03)
[2020-03-21] MEDS: ARIPiprazole 10 MG TAB PO SCH (09:03)
[2020-03-21] MEDS: ESCITALOPRAM OXALATE 10 MG TAB PO SCH (09:04)
[2020-03-21] MEDS: THIAMINE HCL 100 MG TAB PO SCH (09:04)
[2020-03-21] MEDS: CYANOCOBALAMIN 500 MCG TABLET (VITAMIN B-12) PO SCH (09:04)
[2020-03-21] MEDS ORDERED: PROMETHAZINE HCL 12.5 MG in SODIUM CHLORIDE 0.9% 50 ML IV PRN (09:15)
[2020-03-21] MEDS: cefOXitin 2,000 MG in DEXTROSE 5% 50 ML IV SCH ×3 (11:05→23:20)
[2020-03-21] MEDS: ACETAMINOPHEN 325 MG TAB PO SCH ×3 (11:57→23:20)
[2020-03-21] MEDS ORDERED: cefTRIAXone SODIUM 1,000 MG in DEXTROSE 5% 50 ML IV SCH (12:00)
[2020-03-21] MEDS: ONDANSETRON INJ 2 MG/ML 2 ML VIAL IV SCH ×4 (12:22→20:33)
[2020-03-21] MEDS: IBUPROFEN 600 MG TAB PO PRN (12:41)
--- NOTE | 2020-03-21 14:34 | Hospitalist Progress Note ---
Date of Service March 21, 2020 Assessment & Plan Admission and Anticipated Discharge Date Admission Date: March 20, 2020 1. Acute pelvic inflammatory disease (PID): Per ED provider, she had cervical discharge and cervical motion tenderness on exam. Pelvic exam not repeated Patient noticed foul smelling vaginal discharge. She is also concerned for STD, and has had STD in the past. - Ceftriaxone switched to cefoxitine in line with standard of treatment. Pt currently on cefoxitine + doxycycline, 7 day course. - Awaiting gonorrhea and chlamydia tests 2. Nausea/vomiting: Most likely secondary to her acute PID -Keep on fluids to help with dehydration -Protonix administered for complaints of heartburn -Sucralfate PO QID for gastric protection -Phenergan scheduled Q6. -Zofran PRN Q8 -Goal is for patient to keep food down for 24 hours 3. Alcohol abuse: Patient reports last drink was last Wednesday, 6 days ago. Prior to ED, was pt was at [facility] [place] for alcohol detox. - Monitor for alcohol withdrawal symptoms 4. Polysubstance abuse: Patient admits to abusing MDMA, marijuana, alcohol - Discharge back to rehab when medically stable - Will consider psych consult for mental health support and resources FEN/GI - DVT prophylaxis - SCDs ordered. Low risk per calculation Dispo - Discharge to rehab when medically stable Code - Full code Supervising Physician Co-Signing Physician Notes Attending attestation Pt seen and examined in concert with Dr. Pederson. In agreement with the documented findings as noted in the resident documentation with any exceptions or additions as noted here. 40 y/o female h/o alcohol and substance use (spice, MDMA, last 6 days ago) presents with n/v and CMT on ED examination concerning for PID. Mild improvement in nausea/vomiting following antiemetic therapy and decrease in epigastric and suprapubic pain On examination, S1/S2 nl RRR no MCG. CTAB. Abd tender epigastric and suprapubic but guarding throughout PID - pending results of GC/CT. Transitioned to cefoxitin and continued doxycycline. Oral therapy likely to be azithro (second line but shorter course and daily med for adherence) EtOH and substance abuse - for return to [facility] on discharge. Else see resident documentation as noted. Jose Hall is a 40 y/o female with a history of MDMA and marijuana abuse, who presented to the ED with persistent nausea and vomiting. The patient is currently at [facility] inpatient rehab for detoxification from alcohol. She is concerned that she might have an STD. She noticed foul smelling discharge earlier, plus lower abdominal cramps. Last menstrual period was at expected time. At ED, pelvic exam showed significant discharge as well as cervical motion tenderness. Today, the patient seemed uncomfortable and unwilling "to answer questions she already answered before." She was nauseous, and her appetite was decreased. She was refusing to eat or take her meds because she thought everything made her sick. Her abdomen was "tender everywhere." She seemed to be in better mood after taking a shower Review of Systems Constitutional: + chills, + body aches and + weakness Gastrointestinal: nausea, abdominal cramping, vomiting Genitourinary: + vaginal discharge Psychiatric: + change in appetite, + irritability and + substance abuse Physical Exam Constitutional: appeared to be in acute distress due to her nausea Respiratory: normal respiratory effort, lungs clear to auscultation Cardiovascular: RRR, no murmur, no edema Heart Sounds: normal S1 and normal S2 Gastrointestinal (Abdomen): non-distended, diffuse tenderness Psychiatric: A+Ox3, euthymic affect Results & Data Results & Data ([facility]) Vital Signs (Past 12 Hours) Vital Signs Temp Pulse Resp BP Pulse Ox 03/21/20 12:30 119/81 03/21/20 11:35 36.4 C L 57 L 18 180/94 H 99 03/21/20 08:00 37 C 70 18 143/79 H 99 03/21/20 03:00 59 L 18 145/95 H 98
[2020-03-21] MEDS: PROMETHAZINE HCL 12.5 MG in SODIUM CHLORIDE 0.9% 50 ML IV SCH ×2 (15:43→22:13)
[2020-03-21] MEDS: SUCRALFATE 1 GM/10 ML UDC PO SCH ×2 (16:42→20:33)
[2020-03-21] MEDS: PANTOprazole 40 MG in SYRINGE 0 ML IV SCH (20:33)
[2020-03-22] MEDS: ONDANSETRON INJ 2 MG/ML 2 ML VIAL IV SCH ×6 (00:54→20:21)
[2020-03-22] MEDS ORDERED: cloNIDine HCL 0.1 MG TAB PO ONE (03:09)
[2020-03-22] MEDS ORDERED: MULTI-VITAMIN INFUSION 10 ML, THIAMINE HCL 100 MG, FOLIC ACID 1 MG in SODIUM CHLORIDE 0... IV ONE (03:14)
[2020-03-22] MEDS: PROMETHAZINE HCL 12.5 MG in SODIUM CHLORIDE 0.9% 50 ML IV SCH ×4 (04:49→21:30)
[2020-03-22] MEDS: IBUPROFEN 600 MG TAB PO PRN (04:59)
[2020-03-22] MEDS: ACETAMINOPHEN 325 MG TAB PO SCH ×4 (05:00→23:59)
[2020-03-22] MEDS: cefOXitin 2,000 MG in DEXTROSE 5% 50 ML IV SCH ×4 (05:07→23:55)
[2020-03-22 07:35] LABS: Basophils # (auto) 0.01 K/uL (0-0.2); Basophils % (auto) 0.1 %; Eosinophils # (auto) 0.03 K/uL (0-0.5); Eosinophils % (auto) 0.3 %; Hemoglobin 14.3 g/dL (12.0-16.0); Immature Granulocytes # (auto) 0.03 K/uL (0.00-0.02); Immature Granulocytes % (auto) 0.3 %; Lymphocytes # (auto) 2.82 K/uL (1.2-3.4); Lymphocytes % (auto) 25.9 %; Mean Corpuscular Hemoglobin 28.9 pg (25-34); Mean Platelet Volume 11.4 fL (7.4-10.4); Monocytes # (auto) 0.59 K/uL (0.11-0.59); Monocytes % (auto) 5.4 %; Neutrophils # (auto) 7.39 K/uL (1.4-6.5); Platelet Count 303 K/uL (130-400); RDW Coefficient of Variation 14.4 % (11.5-14.5); RDW Standard Deviation 44.9 fL (36.4-46.3); Red Blood Count 4.94 M/uL (4.2-5.4); White Blood Count 10.87 K/uL (4.8-10.8)
[2020-03-22] MEDS: SUCRALFATE 1 GM/10 ML UDC PO SCH ×4 (07:36→20:42)
[2020-03-22] MEDS: ARIPiprazole 10 MG TAB PO SCH (07:36)
[2020-03-22] MEDS: busPIRone 5 MG TAB PO SCH ×2 (07:36→20:42)
[2020-03-22] MEDS: ESCITALOPRAM OXALATE 10 MG TAB PO SCH (07:37)
[2020-03-22] MEDS: FOLIC ACID 1 MG TAB PO SCH (07:37)
[2020-03-22] MEDS: PANTOprazole 40 MG in SYRINGE 0 ML IV SCH ×2 (07:37→20:44)
[2020-03-22] MEDS: THIAMINE HCL 100 MG TAB PO SCH (07:38)
[2020-03-22] MEDS: DOXYCYCLINE HYCLATE 100 MG CAP PO SCH ×2 (07:38→20:45)
[2020-03-22] MEDS: CYANOCOBALAMIN 500 MCG TABLET (VITAMIN B-12) PO SCH (07:39)
--- NOTE | 2020-03-22 13:11 | Hospitalist Progress Note ---
Date of Service March 22, 2020 Assessment & Plan (1) Acute pelvic inflammatory disease (PID): 40 yo F with polysubstance abuse, depression admitted for PID. 1. PID - Day 3 of antibiotics. [cefoxitin Q6 and Doxy BID] - PCR chlamydia and gonorrhea pending - WBC stable at 10k - 2. Nausea/vomiting - phenergan scheduled - zofran PRN - likely secondary to PID/withdrawal from Spice - improving, still reliant on medications for nausea control 3. Depression - hesitant to take abilify given that the medication is new and she is still nauseous - has refused medications multiple times DVT ppx: low risk, ambulate ad carlin FEN/GI: regular diet, PPI BID + Sucralfate + famotidine Code status: full code Dispo: d/c to [facility] when medically cleared (2) Nausea & vomiting: (3) Alcohol abuse: (4) Depression: Admission and Anticipated Discharge Date Admission Date: March 21, 2020 Supervising Physician Co-Signing Physician Notes I also saw the patient with the resident physician and confirmed donnelly portions of the history physical examination. Upon our exam this afternoon, the patient reports less nausea; she does have some abdominal discomfort that is relieved by a hot shower. She has had no emesis. Exam 152/93, pulse 62, respiratory 18. Temperature 37.1 C, pulse oximetry 100 percent room air Heart regular rate and rhythm. No murmurs appreciated. Lungs are clear throughout with nonlabored respirations. Abdomen is soft and nontender. Data White blood cell count 10.8, hemoglobin 14.3 Potassium 3.4, BUN 7, creatinine 0.6 Impression and plan Pelvic inflammatory disease Continue cefoxitin and doxycycline As nausea improves could switch to p.o. antibiotics Upon discharge will return to [facility] for continued drug rehabilitation I agree with the impression and plan as noted in the resident documentation Subjective feeling a little better this morning. Hasn't vomited since 4 am. continues to feel nauseous in the time when meds are scheduled to be given. was able to tolerate drinking and eating some food today. says that her hot showers continue to help control the nausea. Review of Systems Constitutional: no fever, no chills, no body aches and no fatigue Respiratory: no cough and no dyspnea Cardiovascular: no chest pain and no palpitations Gastrointestinal: + abdominal pain and + nausea; no vomiting and no cramping Physical Exam Constitutional: WD/WN, vitals as above Eyes: EOM intact bilaterally; no conjunctival abnormality Neck: trachea midline, no thyromegaly normal visual inspection Respiratory: normal respiratory effort, lungs clear to auscultation no respiratory distress Cardiovascular: RRR, no murmur, no edema Gastrointestinal (Abdomen): Inspection/Auscultation: abdomen normal to inspection; abdomen not distended Musculoskeletal: no cyanosis or clubbing, extremities motor strength 5/5 Skin: no rashes, warm and dry Neurologic: moves all extremities and awake Psychiatric: Orientation: alert, oriented to person and cooperative Results & Data Results & Data ([facility]) Vital Signs (Past 12 Hours) Vital Signs Temp Pulse Resp BP BP Pulse Ox 03/22/20 11:05 37.1 C 62 18 152/93 H 100 03/22/20 08:20 60 107/76 03/22/20 07:40 36.8 C 60 18 145/99 H 99 03/22/20 05:00 126/81 03/22/20 04:30 138/87 03/22/20 04:05 36.5 C 60 17 168/103 H 100 03/22/20 02:45 190/91 H 03/22/20 02:30 36.6 C 61 18 183/102 H 100 Laboratory Results WBC 10.87 K/uL (4.8-10.8) H 03/22/20 07:10 RBC 4.94 M/uL (4.2-5.4) 03/22/20 07:10 Hgb 14.3 g/dL (12.0-16.0) 03/22/20 07:10 Hct 42.0 % (37-47) 03/22/20 07:10 MCV 85.0 fL (80-100) 03/22/20 07:10 MCH 28.9 pg (25-34) 03/22/20 07:10 MCHC 34.0 g/dL (32-36) 03/22/20 07:10 RDW Std Deviation 44.9 fL (36.4-46.3) 03/22/20 07:10 RDW Coeff of Dimitrios 14.4 % (11.5-14.5) 03/22/20 07:10 Plt Count 303 K/uL (130-400) 03/22/20 07:10 MPV 11.4 fL (7.4-10.4) H 03/22/20 07:10 Immature Gran % (Auto) 0.3 % 03/22/20 07:10 Neut % (Auto) 68.0 % 03/22/20 07:10 Lymph % (Auto) 25.9 % 03/22/20 07:10 [place] % (Auto) 5.4 % 03/22/20 07:10 Eos % (Auto) 0.3 % 03/22/20 07:10 Baso % (Auto) 0.1 % 03/22/20 07:10 Neut # (Auto) 7.39 K/uL (1.4-6.5) H 03/22/20 07:10 Lymph # (Auto) 2.82 K/uL (1.2-3.4) 03/22/20 07:10 [place] # (Auto) 0.59 K/uL (0.11-0.59) 03/22/20 07:10 Eos # (Auto) 0.03 K/uL (0-0.5) 03/22/20 07:10 Baso # (Auto) 0.01 K/uL (0-0.2) 03/22/20 07:10 Immature Gran # (Auto) 0.03 K/uL (0.00-0.02) H 03/22/20 07:10 Sodium 137 mmol/L (136-145) 03/21/20 05:25 Potassium 3.4 mmol/L (3.5-5.1) L 03/21/20 05:25 Chloride 103 mmol/L (98-107) 03/21/20 05:25 Carbon Dioxide 28 mmol/L (21-32) 03/21/20 05:25 Anion Gap 6.0 (3-11) 03/21/20 05:25 BUN 7 mg/dl (7-18) D 03/21/20 05:25 Creatinine 0.60 mg/dl (0.6-1.2) D 03/21/20 05:25 Est Cr Clr Drug Dosing 124.5 ml/min 03/21/20 05:25 Est GFR ( Amer) 131.2 03/21/20 05:25 Est GFR (Non-Af Amer) 113.2 03/21/20 05:25 BUN/Creatinine Ratio 12.3 (10-20) 03/21/20 05:25 Glucose 88 mg/dl (70-99) 03/21/20 05:25 Calcium 8.4 mg/dl (8.5-10.1) L D 03/21/20 05:25 Magnesium 2.1 mg/dl (1.8-2.4) 03/21/20 05:25 Total Bilirubin 0.7 mg/dl (0.2-1) 03/20/20 11:17 AST 14 U/L (15-37) L 03/20/20 11:17 ALT 21 U/L (12-78) 03/20/20 11:17 Alkaline Phosphatase 72 U/L (45-117) 03/20/20 11:17 Troponin I < 0.015 ng/ml (0-0.045) 03/20/20 11:17 Total Protein 10.1 gm/dl (6.4-8.2) H 03/20/20 11:17 Albumin 4.8 gm/dl (3.4-5.0) 03/20/20 11:17 Globulin 5.3 gm/dl (2.5-4.0) H 03/20/20 11:17 Albumin/Globulin Ratio 0.9 (0.9-2) 03/20/20 11:17 Lipase 91 U/L (73-393) 03/20/20 11:17 HCG, Qual Negative (Negative) 03/20/20 11:17 Urine Color Dark Yellow 03/20/20 11:17 Urine Appearance Turbid (Clear) A 03/20/20 11:17 Urine pH 5.5 (4.5-7.5) 03/20/20 11:17 Ur Specific [place] 1.026 (1.000-1.030) 03/20/20 11:17 Urine Protein 2+ (Negative) H 03/20/20 11:17 Urine Glucose (UA) Negative (Negative) 03/20/20 11:17 Urine Ketones 3+ (Negative) H 03/20/20 11:17 Urine Blood Trace (Negative) H 03/20/20 11:17 Urine Nitrite Negative (Negative) 03/20/20 11:17 Urine Bilirubin 2+ (Negative) H 03/20/20 11:17 Urine Urobilinogen Negative (Negative) 03/20/20 11:17 Ur Leukocyte Esterase 2+ (Negative) H 03/20/20 11:17 Urine WBC (Auto) >30 /hpf (0-5) H 03/20/20 11:17 Urine RBC (Auto) 0-4 /hpf (0-4) 03/20/20 11:17 U Hyaline Cast (Auto) 10-30 /lpf (0-5) H 03/20/20 11:17 U Epithel Cells (Auto) >30 /lpf (0-5) H 03/20/20 11:17 Urine Bacteria (Auto) 2+ (Negative) H 03/20/20 11:17 Urine Opiates Screen Neg (Neg) 03/20/20 11:17 Ur Methadone, Qual Neg (Neg) 03/20/20 11:17 Urine Barbiturates Neg (Neg) 03/20/20 11:17 Ur Phencyclidine (PCP) Neg (Neg) 03/20/20 11:17 U Amphetamin/Meth Scrn Neg (Neg) 03/20/20 11:17 MDMA (Ecstasy) Screen Neg (Neg) 03/20/20 11:17 U Benzodiazepines Scrn Neg (Neg) 03/20/20 11:17 Ur Cocaine Metabolite Neg (Neg) 03/20/20 11:17 U Marijuana (THC) Screen Neg (Neg) 03/20/20 11:17 Resident Activity Tracking Resident Involvement: Resident Care Provided Care Provided: Adult [facility] Medicine (1) Nausea & vomiting Vomiting Intractability: non-intractable Vomiting type: unspecified Qualified Code(s): R11.2 - Nausea with vomiting, unspecified
[2020-03-22] MEDS: FAMOTIDINE 20 MG in SYRINGE 3 ML IV SCH (21:30)
[2020-03-23] MEDS: ONDANSETRON INJ 2 MG/ML 2 ML VIAL IV SCH ×7 (00:30→20:56)
[2020-03-23] MEDS: ACETAMINOPHEN 325 MG TAB PO SCH ×4 (00:52→16:04)
[2020-03-23] MEDS: PROMETHAZINE HCL 12.5 MG in SODIUM CHLORIDE 0.9% 50 ML IV SCH ×4 (04:38→22:58)
[2020-03-23] MEDS ORDERED: hydrALAZINE HCL 20 MG/ML VIAL IV STA (04:42)
[2020-03-23] MEDS: cefOXitin 2,000 MG in DEXTROSE 5% 50 ML IV SCH ×3 (05:14→16:04)
[2020-03-23 06:43] LABS: Basophils # (auto) 0.01 K/uL (0-0.2); Basophils % (auto) 0.1 %; Eosinophils # (auto) 0.06 K/uL (0-0.5); Eosinophils % (auto) 0.6 %; Hematocrit (blood only) 45.2 % (37-47); Hemoglobin 15.3 g/dL (12.0-16.0); Immature Granulocytes # (auto) 0.03 K/uL (0.00-0.02); Immature Granulocytes % (auto) 0.3 %; Lymphocytes # (auto) 2.62 K/uL (1.2-3.4); Lymphocytes % (auto) 24.1 %; Mean Corpuscular Hemoglobin 28.5 pg (25-34); Mean Corpuscular Hgb Conc 33.8 g/dL (32-36); Mean Corpuscular Volume 84.2 fL (80-100); Mean Platelet Volume 11.7 fL (7.4-10.4); Monocytes # (auto) 0.59 K/uL (0.11-0.59); Monocytes % (auto) 5.4 %; Neutrophils # (auto) 7.56 K/uL (1.4-6.5); Neutrophils % (auto) 69.5 %; Platelet Count 325 K/uL (130-400); RDW Coefficient of Variation 14.3 % (11.5-14.5); RDW Standard Deviation 43.8 fL (36.4-46.3); Red Blood Count 5.37 M/uL (4.2-5.4); White Blood Count 10.87 K/uL (4.8-10.8)
[2020-03-23 07:30] LABS: BUN Creatinine Ratio 3.9 (10-20); Calcium 9.2 mg/dl (8.5-10.1); Creatinine Clr Calc Pharmacy 46.7 ml/min; Est GFR (African American) 45.9; Est GFR (Non-African American) 39.6; Potassium 2.8 mmol/L (3.5-5.1)
[2020-03-23] MEDS ORDERED: POTASSIUM CHLORIDE CRTAB 20 MEQ TABCR PO STA (07:36)
[2020-03-23] MEDS: PANTOprazole 40 MG in SYRINGE 0 ML IV SCH ×2 (07:59→20:58)
[2020-03-23] MEDS: FAMOTIDINE 20 MG in SYRINGE 3 ML IV SCH ×2 (07:59→20:57)
[2020-03-23] MEDS: ARIPiprazole 10 MG TAB PO SCH (08:50)
[2020-03-23] MEDS: busPIRone 5 MG TAB PO SCH ×2 (08:50→20:58)
[2020-03-23] MEDS: ESCITALOPRAM OXALATE 10 MG TAB PO SCH (08:51)
[2020-03-23] MEDS: CYANOCOBALAMIN 500 MCG TABLET (VITAMIN B-12) PO SCH (08:51)
[2020-03-23] MEDS: SUCRALFATE 1 GM/10 ML UDC PO SCH ×4 (08:51→20:58)
[2020-03-23] MEDS: DOXYCYCLINE HYCLATE 100 MG CAP PO SCH ×2 (08:51→22:59)
[2020-03-23] MEDS: FOLIC ACID 1 MG TAB PO SCH (08:51)
[2020-03-23] MEDS: THIAMINE HCL 100 MG TAB PO SCH (08:51)
--- NOTE | 2020-03-23 12:02 | Hospitalist Progress Note ---
Date of Service March 23, 2020 Assessment & Plan (1) Acute pelvic inflammatory disease (PID): 40 yo F with polysubstance abuse, depression admitted for PID continues to have nausea and vomiting. 1. PID - Day 3 of antibiotics. [cefoxitin Q6 and Doxy BID] - PCR chlamydia and gonorrhea pending - WBC stable at 10k - continue to monitor - transition to oral abx. when able to take PO intake 2. Nausea/vomiting likely secondary to PID/withdrawal from [facility] with cannabinoid hyperemesis syndrome given relief with hot showers - phenergan scheduled - zofran PRN - Still reliant on medications for nausea control 3. Depression - hesitant to take abilify given that the medication is new and she is still nauseous - has refused medications multiple times DVT ppx: low risk, ambulate ad cariln FEN/GI: regular diet, PPI BID + Sucralfate + famotidine Code status: full code Dispo: d/c to [facility] when medically cleared Admission and Anticipated Discharge Date Admission Date: March 21, 2020 Supervising Physician Co-Signing Physician Notes I also saw the patient with the resident physician and confirmed donnelly portions of the history physical examination. This morning the patient notes increased nausea; this is again relieved by a hot shower. She is having some increased nausea with food and smells. Exam 167/101, pulse 63, respiratory 20. Afebrile , pulse oximetry 100 percent room air Heart regular Data White blood cell count 10.8, hemoglobin 15.3 Potassium 2.8, BUN 6, creatinine 1.6 Impression and plan Pelvic inflammatory disease Hypokalemia Continue cefoxitin and doxycycline Replete potassium Monitor creatinine Her nausea is unfortunate little bit worse today Her persistent need for hot showers is consistent with cannabinoids hyperemesis Upon discharge will return to [facility] for continued drug rehabilitation I agree with the impression and plan as noted in the resident documentation Jose Walton is doing okay this morning. She was nauseous, and vomited while I was in the room. I discussed with her that it was likely that she was having symptoms of withdrawal but she explained that she did not have these symptoms with withdrawal in the past. She did note that she had improvement in her symptoms when she had a hot shower. Review of Systems Review of Systems: Constitutional: denies fevers, admits chills Abd.: admits nausea and vomiting Physical Exam Constitutional: WD/WN, vitals as above Eyes: EOM intact bilaterally; no conjunctival abnormality Neck: trachea midline, no thyromegaly normal visual inspection Respiratory: normal respiratory effort, lungs clear to auscultation no respiratory distress Cardiovascular: RRR, no murmur, no edema Gastrointestinal (Abdomen): Inspection/Auscultation: abdomen normal to inspection; abdomen not distended Musculoskeletal: no cyanosis or clubbing, extremities motor strength 5/5 Skin: no rashes, warm and dry no splinter hem. no [place] nodes Neurologic: moves all extremities and awake Psychiatric: Orientation: alert, oriented to person and cooperative Mood: + anxious mood Results & Data Results & Data ([facility]) Vital Signs (Past 12 Hours) Vital Signs Temp Pulse Resp BP BP Pulse Ox 03/23/20 11:11 36.6 C 64 15 03/23/20 08:55 36.6 C 59 L 16 151/88 H 98 03/23/20 05:51 36.3 C L 68 18 165/89 H 100 03/23/20 05:20 53 L 167/91 H 03/23/20 05:00 172/107 H 03/23/20 04:25 198/98 H CBC Results Results Complete Blood Count Results: RBC 5.37 M/uL (4.2-5.4) 03/23/20 WBC 10.87 K/uL (4.8-10.8) H 03/23/20 Hgb 15.3 g/dL (12.0-16.0) 03/23/20 Hct 45.2 % (37-47) 03/23/20 Plt Count 325 K/uL (130-400) 03/23/20 Chemistry ([facility]) Results [facility] Results: Sodium 137 mmol/L (136-145) 03/23/20 Potassium 2.8 mmol/L (3.5-5.1) L 03/23/20 Chloride 103 mmol/L (98-107) 03/23/20 BUN 6 mg/dl (7-18) L 03/23/20 Creatinine 1.60 mg/dl (0.6-1.2) H 03/23/20 Glucose 91 mg/dl (70-99) 03/23/20 Resident Activity Tracking Resident Involvement: Resident Care Provided Care Provided: Adult [facility] Medicine
[2020-03-24] MEDS: ACETAMINOPHEN 325 MG TAB PO SCH ×5 (00:59→19:45)
[2020-03-24] MEDS: ONDANSETRON INJ 2 MG/ML 2 ML VIAL IV SCH ×7 (00:59→23:47)
[2020-03-24] MEDS: cefOXitin 2,000 MG in DEXTROSE 5% 50 ML IV SCH ×5 (00:59→21:49)
[2020-03-24] MEDS: PROMETHAZINE HCL 12.5 MG in SODIUM CHLORIDE 0.9% 50 ML IV SCH ×4 (05:48→21:50)
[2020-03-24 08:23] LABS: Basophils # (auto) 0.03 K/uL (0-0.2); Basophils % (auto) 0.3 %; Eosinophils # (auto) 0.17 K/uL (0-0.5); Eosinophils % (auto) 1.5 %; Hematocrit (blood only) 43.9 % (37-47); Immature Granulocytes # (auto) 0.03 K/uL (0.00-0.02); Immature Granulocytes % (auto) 0.3 %; Lymphocytes # (auto) 2.84 K/uL (1.2-3.4); Lymphocytes % (auto) 25.6 %; Mean Corpuscular Hgb Conc 34.2 g/dL (32-36); Mean Corpuscular Volume 84.7 fL (80-100); Mean Platelet Volume 11.5 fL (7.4-10.4); Monocytes # (auto) 0.75 K/uL (0.11-0.59); Monocytes % (auto) 6.8 %; Neutrophils # (auto) 7.28 K/uL (1.4-6.5); Neutrophils % (auto) 65.5 %; Platelet Count 295 K/uL (130-400); RDW Coefficient of Variation 14.3 % (11.5-14.5); RDW Standard Deviation 44.5 fL (36.4-46.3); Red Blood Count 5.18 M/uL (4.2-5.4)
[2020-03-24] MEDS: ARIPiprazole 10 MG TAB PO SCH (08:52)
[2020-03-24] MEDS: busPIRone 5 MG TAB PO SCH ×2 (08:52→19:43)
[2020-03-24] MEDS: DOXYCYCLINE HYCLATE 100 MG CAP PO SCH ×2 (08:53→19:47)
[2020-03-24] MEDS: FOLIC ACID 1 MG TAB PO SCH (08:53)
[2020-03-24] MEDS: SUCRALFATE 1 GM/10 ML UDC PO SCH ×4 (08:53→19:47)
[2020-03-24] MEDS: ESCITALOPRAM OXALATE 10 MG TAB PO SCH (08:53)
[2020-03-24] MEDS: CYANOCOBALAMIN 500 MCG TABLET (VITAMIN B-12) PO SCH (08:54)
[2020-03-24] MEDS: THIAMINE HCL 100 MG TAB PO SCH (08:54)
[2020-03-24 08:55] LABS: BUN Creatinine Ratio 4.5 (10-20); Calcium 9.3 mg/dl (8.5-10.1); Creatinine Clr Calc Pharmacy 73.9 ml/min; Est GFR (African American) 80.1; Est GFR (Non-African American) 69.1; Potassium 3.5 mmol/L (3.5-5.1)
[2020-03-24] MEDS: PANTOprazole 40 MG in SYRINGE 0 ML IV SCH ×2 (09:36→19:46)
[2020-03-24] MEDS: FAMOTIDINE 20 MG in SYRINGE 3 ML IV SCH ×2 (09:36→19:46)
--- NOTE | 2020-03-24 11:17 | Hospitalist Progress Note ---
Date of Service March 24, 2020 Assessment & Plan (1) Acute pelvic inflammatory disease (PID): 40 yo F with polysubstance abuse, depression admitted for PID continues to have nausea and vomiting. PID - continued elevated/stable WBC at 11.1 from 10.8 yesterday - Day 4 of antibiotics. [cefoxitin Q6 and Doxy BID] - PCR chlamydia and gonorrhea pending - continue to monitor - discharge pending able to take PO intake w/ improvement in nausea Nausea/vomiting likely secondary to PID/withdrawal from [facility] with cannabinoid hyperemesis syndrome given relief with hot showers although could be due to cyclic vomiting syndrome or a migraine given improvement w/ sumatriptan - Phenergan scheduled - Zofran PRN - consider repeat dose of Sumatriptan - Still reliant on medications for nausea control Substance abuse - was at [facility] for rehabilitation prior to admission, with plan to return Depression - hesitant to take Abilify given that the medication is new and she is still nauseous - has refused medications multiple times DVT ppx: low risk, ambulate ad carlin FEN/GI: regular diet, PPI BID + Sucralfate + famotidine Code status: full code Dispo: d/c to [facility] when medically cleared Admission and Anticipated Discharge Date Admission Date: March 21, 2020 Supervising Physician Co-Signing Physician Notes I also saw the patient and confirmed donnelly portions of the history physical examination. I agree with impression and plan as noted in resident documentation Exam 168/100, pulse 68, respiratory 16 Afebrile , pulse oximetry 100 percent room air Heart regular Data White blood cell count 11.1, hemoglobin 15. Potassium 3.5, BUN 5, creatinine 1.01 Impression and plan Pelvic inflammatory disease Hypokalemia, resolved with repletion Cannabinoid hyperemesis syndrome Continue cefoxitin and doxycycline Monitor BMP Symptomatic care for nausea Her persistent need for hot showers is consistent with cannabinoids hyperemesis Upon discharge will [facility] to [facility] Subjective Isabelher Walton was having continued nausea and vomiting this morning. She felt that the warm showers were helping with the nausea, but explained that it was improving her sore muscles. She did have a headache in the afternoon and after taking Sumatriptan had improvement in her headache and nausea. Review of Systems Review of Systems: Constitutional: denies fevers, admits chills Abd.: admits nausea and vomiting, LBM yesterday (small) Physical Exam Constitutional: WD/WN, vitals as above Eyes: EOM intact bilaterally; no conjunctival abnormality Neck: trachea midline, no thyromegaly normal visual inspection Respiratory: normal respiratory effort, lungs clear to auscultation no respiratory distress Cardiovascular: RRR, no murmur, no edema Gastrointestinal (Abdomen): Inspection/Auscultation: abdomen normal to inspection; abdomen not distended Musculoskeletal: no cyanosis or clubbing, extremities motor strength 5/5 Skin: no rashes, warm and dry no splinter hem. no Oslers nodes Neurologic: moves all extremities and awake Psychiatric: Orientation: alert, oriented to person and cooperative Mood: + anxious mood
[2020-03-24] MEDS ORDERED: SUMAtriptan succinate 6 MG/0.5 ML VIAL SQ STA (15:13)
[2020-03-25] MEDS: ONDANSETRON INJ 2 MG/ML 2 ML VIAL IV SCH ×3 (04:26→11:10)
[2020-03-25] MEDS: ACETAMINOPHEN 325 MG TAB PO SCH ×2 (04:26→11:10)
[2020-03-25] MEDS: PROMETHAZINE HCL 12.5 MG in SODIUM CHLORIDE 0.9% 50 ML IV SCH ×2 (04:27→09:10)
[2020-03-25] MEDS: cefOXitin 2,000 MG in DEXTROSE 5% 50 ML IV SCH ×2 (04:28→10:30)
[2020-03-25] MEDS ORDERED: SUMAtriptan succinate 6 MG/0.5 ML VIAL SQ STA (05:02)
[2020-03-25 07:04] LABS: Basophils # (auto) 0.03 K/uL (0-0.2); Basophils % (auto) 0.3 %; Eosinophils # (auto) 0.21 K/uL (0-0.5); Eosinophils % (auto) 1.8 %; Hematocrit (blood only) 41.8 % (37-47); Hemoglobin 14.2 g/dL (12.0-16.0); Immature Granulocytes # (auto) 0.03 K/uL (0.00-0.02); Immature Granulocytes % (auto) 0.3 %; Lymphocytes # (auto) 2.36 K/uL (1.2-3.4); Lymphocytes % (auto) 20.6 %; Mean Corpuscular Hemoglobin 28.9 pg (25-34); Mean Corpuscular Volume 85.1 fL (80-100); Mean Platelet Volume 11.3 fL (7.4-10.4); Monocytes # (auto) 0.85 K/uL (0.11-0.59); Monocytes % (auto) 7.4 %; Neutrophils # (auto) 7.95 K/uL (1.4-6.5); Neutrophils % (auto) 69.6 %; Platelet Count 275 K/uL (130-400); RDW Coefficient of Variation 14.3 % (11.5-14.5); RDW Standard Deviation 44.7 fL (36.4-46.3); Red Blood Count 4.91 M/uL (4.2-5.4); White Blood Count 11.43 K/uL (4.8-10.8)
[2020-03-25 07:21] LABS: BUN Creatinine Ratio 5.8 (10-20); Est GFR (African American) 84.1; Est GFR (Non-African American) 72.5
[2020-03-25] MEDS: PANTOprazole 40 MG in SYRINGE 0 ML IV SCH (07:41)
[2020-03-25] MEDS: FAMOTIDINE 20 MG in SYRINGE 3 ML IV SCH (07:41)
[2020-03-25] MEDS: busPIRone 5 MG TAB PO SCH (07:47)
[2020-03-25] MEDS: ARIPiprazole 10 MG TAB PO SCH (07:47)
[2020-03-25] MEDS: ESCITALOPRAM OXALATE 10 MG TAB PO SCH (07:47)
--- NOTE | 2020-03-25 07:55 | Hospitalist Progress Note ---
Date of Service March 25, 2020 Assessment & Plan Admission and Anticipated Discharge Date Admission Date: March 21, 2020 Results & Data Results & Data ([facility]) Vital Signs (Past 12 Hours) Vital Signs Temp Pulse Resp BP BP Pulse Ox 03/25/20 07:46 36.2 C L 62 18 174/103 H 172/100 H 97 03/24/20 23:44 37.0 C 76 17 162/80 H 98
[2020-03-25] MEDS ORDERED: POTASSIUM CHLORIDE / WTR 10 MEQ/100 ML PLCT IV SCH (08:00)
[2020-03-25] MEDS ORDERED: POTASSIUM CHLORIDE CRTAB 20 MEQ TABCR PO ONE ×2 (08:30→12:00)
[2020-03-25] MEDS: DOXYCYCLINE HYCLATE 100 MG CAP PO SCH (09:10)
[2020-03-25] MEDS: THIAMINE HCL 100 MG TAB PO SCH (09:10)
[2020-03-25] MEDS: CYANOCOBALAMIN 500 MCG TABLET (VITAMIN B-12) PO SCH (09:10)
[2020-03-25] MEDS: FOLIC ACID 1 MG TAB PO SCH (09:10)
[2020-03-25] MEDS: SUCRALFATE 1 GM/10 ML UDC PO SCH ×2 (09:17→11:11)
--- NOTE | 2020-03-25 12:25 | Discharge Summary ---
Date of Service March 25, 2020 Admission HPI Per Admitting Provider 40yo F w/ hx of alcohol abuse who presents with likely PID. Patient is a reluctant historian and after partial interview reports she "just wants warm blankets and to go to sleep" then turns over and ignores my other questions. In terms of interview, she says she had her last drink on Wednesday. She is from [place] and was at [facility] for inpatient rehab. She does not/cannot give me a history of how she got to [facility], only saying she was NOT visiting family or friends in the area. She reports some abdominal cramping and nausea over the last few days. She reports it is waxing and waning and has no associated alleviating or exacerbating factors. She also notes some chills during this time. She declined further ROS. Admission Exam Per Admitting Provider Constitutional: WD/WN, vitals as above Eyes: EOM intact bilaterally; no conjunctival abnormality ENMT: external ear and nose normal, oropharynx normal Neck: trachea midline, no thyromegaly normal visual inspection Respiratory: normal respiratory effort, lungs clear to auscultation no respiratory distress Cardiovascular: RRR, no murmur, no edema Gastrointestinal (Abdomen): Inspection/Auscultation: abdomen normal to inspection; abdomen not distended Musculoskeletal: no cyanosis or clubbing, extremities motor strength 5/5 Skin: no rashes, warm and dry Neurologic: moves all extremities and awake Psychiatric: Orientation: alert, oriented to person and cooperative Principal Diagnosis PID, nausea/vomiting Discharge Exam Constitutional WD/WN, vitals as above ENMT external ear and nose normal, oropharynx normal Respiratory normal respiratory effort, lungs clear to auscultation Cardiovascular RRR, no murmur, no edema Gastrointestinal (Abdomen) normal bowel sounds, soft, nontender, no hepatosplenomegaly Neurologic PERRL, EOMI, accommodation nl, no face palsy, no dysarthria Psychiatric A+Ox3, euthymic affect Discharge Data Allergies Allergy/AdvReac Type Severity Reaction Status Date / Time No Known Allergies Allergy Unverified 03/20/20 11:57 Consultations 03/20/20 14:08 ED Decision to Admit Stat 03/20/20 16:39 Consult Case Management - Discharge Planning Routine Ordered Studies 03/20/20 12:54 CT abd pelvis IV con only Stat Hospital Course (1) Acute pelvic inflammatory disease (PID): 40 yo F with polysubstance abuse, depression admitted for PID continues to have nausea and vomiting. PID - Patient was started on Cefoxitin and Doxy on admission and treated with dual therapy for 5 days. - Transitioned to Doxycycline 100mg BID x 9 more days after discharge. - PCR Chlamydia and Gonorrhea were still pending at time of discharge - HIV negative - Hep C still pending at discharge. Nausea/vomiting likely secondary to PID/withdrawal from [facility] with cannabinoid hyperemesis syndrome - Relief noted via hot showers and Sumatriptan - Phenergan scheduled - Zofran PRN - Discharged with PRN Zofran Substance abuse - was at [facility] for rehabilitation prior to admission, discharged to [facility] Depression - hesitant to take Abilify given that the medication is new and she is still nauseous - Recommend patient continue Abilify, Lexapro and Buspirone once taking PO again. Total Time Total Time Spent Total Time Spent (In Minutes): <30 Discharge Plan Discharge Items Patient Disposition: Home - Self-Care Reason For Visit: Pelvic inflamtory disease Discharge Diagnosis: Pelvic Inflammatory Disease Condition on Discharge: Good Activity: Per Instructions section Non-emergency contact: Primary Care Provider Call non-emergency contact if: you have any medication questions and your symptoms worsen Follow-up/Referrals: PCP,NO [Primary Care Provider] - Diet: Regular Addtl Attending Provider Instructions: Ms Walton, It was our pleasure caring for you at [facility] from 03/20/20 to 03/25/20 for your pelvic inflammatory disease. Please see below for a summary of your care. Pelvic Inflammatory Disease - You have completed 5 days of treatment with Cefoxitin and Doxycycline - Please continue the oral Doxycycline for the following 9 days. Doxycycline 100mg twice a day for 9 days. -Your Chlamydia and Gonorrhea screens were pending, but regardless, you are being treated for both with your antibiotics. -We also sent him for a Hepatitis C level and HIV screen while you were inpatient. Nausea and Vomiting, likely secondary to Cannabinoid Hyperemesis Syndrome -Continue Zofran as prescribed as needed for nausea. -Recommended future cessation of cannabinoid products such as Marijuana and Synthetic Marijuana -Please discuss with your PCP or physician at [facility] in regards to Sumatriptan and your migraines. Depression - Recommend you continue your Abilify, Buspar, and Lexapro as prescribed. Please continue all your remaining home medications as prescribed. Pending Studies at Discharge: No Stand-Alone Forms: My [facility], Smoking Cessation Medications and DC Order Prescriptions: New doxycycline hyclate 100 mg Capsule 100 mg PO BID 9 Days Qty: 18 RF: 0 aripiprazole [Abilify] 10 mg Tablet 10 mg PO QAM 30 Days Qty: 30 RF: 0 buspirone 5 mg Tablet 5 mg PO BID 30 Days Qty: 60 RF: 0 escitalopram oxalate 10 mg Tablet 10 mg PO QAM 30 Days Qty: 30 RF: 0 thiamine HCl (vitamin B1) [Vitamin B-1] 100 mg Tablet 100 mg PO QAM 30 Days Qty: 30 RF: 0 cyanocobalamin (vitamin B-12) 500 mcg Tablet 1,000 mcg PO QAM 30 Days Qty: 60 RF: 0 folic acid 1 mg Tablet 1 mg PO QAM 30 Days Qty: 30 RF: 0 albuterol sulfate 90 mcg/actuation HFA aerosol inhaler 1 inh inhalation Q4H PRN (Reason: shortness of breath or wheezing) Qty: 8.5 RF: 0 albuterol sulfate 2.5 mg/0.5 mL solution for nebulization 2.5 mg inhalation Q8H PRN (Reason: bronchospasm) Qty: 30 RF: 0 (DME) heating pads Pad See Rx Instructions .ROUTE .MEDSUPPLY Qty: 1 RF: 0 Continued ondansetron HCl 8 mg Tablet 8 mg PO TID PRN (Reason: Nausea) RF: 0 Discontinued buspirone [BuSpar] 5 mg Tablet 5 mg PO BID RF: 0 cyanocobalamin (vitamin B-12) [Vitamin B-12] 1,000 mcg Tablet 1,000 mcg PO QAM RF: 0 thiamine HCl (vitamin B1) 100 mg Tablet 100 mg PO QAM RF: 0 acetaminophen [Tylenol 8 Hour] 650 mg Tablet Extended Release 650 mg PO QID PRN (Reason: Pain) RF: 0 Maalox 225-200 mg/5 mL Suspension 20 ml PO BID PRN (Reason: gastric upset) RF: 0 promethazine [Phenergan] 25 mg Tablet 25 mg PO ONCE RF: 0 folic acid 1 mg Tablet 1 mg PO QAM RF: 0 ibuprofen 600 mg Tablet 600 mg PO QID PRN (Reason: Pain) RF: 0 M.V.I. Injectable 1 ea IV QAM RF: 0 escitalopram oxalate [Lexapro] 10 mg Tablet 10 mg PO QAM RF: 0 aripiprazole [Abilify] 10 mg Tablet 10 mg PO QAM RF: 0 aripiprazole [Abilify] 20 mg Tablet 20 mg PO QAM RF: 0 Discharge Orders: Discharge Order (Routine); Ordered 03/25/20 Ordered By: Ze Hendrix Admission Data Admit Date/Time: 03/21/20 15:56 Attending Provider: Don George Admit Provider: Lauren Pederson Primary Care Provider: PCP,NO Other Providers: Lauren Pederson ; Roosevelt Proctor ; James Mcgarry Other Interventions: Discharge Summary Assessment (RN) Last Done: 03/25/20 13:00 Supervising Physician Co-Signing Physician Notes I personally examined the patient and verified all donnelly points of history and exam, discussed case, and agree with decision making with Dr Hendrix. feeling better - still not great but better - able to eat. really wants to get back to rehab. PID sx appear better. agrees to HIV testing and notes thinks she cleared hep C on her own but definitely would like retested for that while labs are being sent. discussed cannabis hyperemesis as dx possibility. she notes she needs refill on albuterol for asthma vitals noted nad heent nc at mmm breathing unlabored no accessory muscles good effort skin no rashes no pallor or icterus neuro no focal deficits. of note - was in shower when we first tried to see her PID - improved. stable for discharge. finish course of abx. HIV neg, hep C repeat pending - encouraged treatment if still positive intractable nausea/vomiting - with drug use and need for hot showers, certainly suspect cannabis hyperemesis - discussed with pt adn discussed need for total abstinence if this is the cause of her n/v. prn's for nausea. supportive care. time stable for return to rehab. Resident Activity Tracking Resident Involvement: Resident Care Provided Care Provided: Adult [facility]
--- NOTE | 2020-03-25 17:54 | Billing Data ---
Date of Service March 25, 2020 Coding Level of Care Code D/C Day Management <30 mins
[2020-03-26 08:04] LABS: Chlamydia Trach RNA NOT DETECTED (NOT DETECTED); GC (Neis gonorrhoeae) RNA DETECTED (NOT DETECTED)
[2020-03-27 05:51] LABS: Hepatitis C Vira RNA (Log) PCR 3.61 Log IU/mL (NOT DETECTED)
[2020-04-02] MEDS ORDERED: ARIPiprazole 10 MG TAB PO SCH (09:00)
== END 2020-03-25 15:04 | disposition home or self-care (01) | DRG 759 ==
LOC: 4N 10:41 → ED 10:41 → SUATTDRO 14:21 → 4N 16:21 → SUATTDRO 03-21 15:56 → 2S 03-23 05:38